=== PATIENT | female | born 1990 | race Caucasian/White ===

== ENCOUNTER 2023-07-20 19:14 | Emergency (ER) | payer OTHER, SELFPAY ==
[2023-07-20] VITALS (18 sets, daily range): BP systolic 100–120; BP diastolic 67–95; BMI 23.8
[2023-07-20] MEDS: NSS 1000 IV (19:38)
[2023-07-20 19:41] LABS: % Basophils 0.9 % (0-2); % Eosinophils 1.2 % (0-6); % Immature Granulocytes 0.3 % (0-0.5); % Monocytes 5.3 % (1.7-9.3); % Neutrophils 46.3 % (42.2-75.2); Absolute Basophils 0.1 10^3/uL (0-0.2); Absolute Eosinophils 0.2 10^3/uL (0-0.7); Absolute Lymphocytes 6.3 10^3/uL (1.2-3.4); Absolute Monocytes 0.7 10^3/uL (0.1-0.6); Absolute Neutrophils 6.3 10^3/uL (1.4-6.5); Hematocrit 37.7 % (37.0-47.0); Hemoglobin 12.9 g/dL (12.0-16.0); Mean Corp Hgb Conc. 34.2 g/dL (33.0-37.0); Mean Corpuscular Hgb 28.6 pg (27.0-31.0); Mean Corpuscular Volume 83.6 fL (81.0-99.0); Mean Platelet Volume 8.7 fL (7.4-10.4); Nucleated Red Blood Cells % 0 %; Platelet Count 317 10^3/uL (130-400); Red Blood Cell Count 4.51 10^6/uL (4.20-5.40); White Blood Cell Count 13.7 10^3/uL (4.8-10.8)
[2023-07-20 20:15] LABS: HCG, Serum Qualitative Screen Negative
[2023-07-20 20:18] LABS: ALT (SGPT) 14 U/L (0-35); AST (SGOT) 22 U/L (14-36); Albumin 4.3 g/dl (3.5-5.0); Alcohol 291 mg/dl; Alkaline Phosphatase 49 U/L (38-126); Blood Urea Nitrogen 8 mg/dl (7-17); Calcium 9.1 mg/dl (8.4-10.2); Carbon Dioxide 24 mmol/L (22-30); Chloride 106 mmol/L (98-107); Estimated Creatinine Clearance 120 ml/min; Glucose 119 mg/dl (70-99); Potassium 3.8 mmol/L (3.5-5.1); Sodium 137 mmol/L (135-145); Total Bilirubin 0.3 mg/dl (0.2-1.3); Total Protein 6.6 g/dl (6.3-8.2); eGFR > 60.00
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
[2023-07-20 20:29] LABS: Acetaminophen < 10 ug/ml (10-30); Salicylate < 1.0 mg/dl (2.0-20.0)
== END 2023-07-21 00:12 | disposition home or self-care (01) ==
LOC: EMR 19:14
PROVIDERS: EMERGENCY PHYSICIAN Emergency Medicine
DX: F10.129 Alcohol abuse with intoxication, unspecified (principal)
CPT/HCPCS: 99284; 80053; 80143; 80179; 82077; 84703; 85025

== ENCOUNTER → 2024-07-03 10:16 | Outpatient (REF) | payer OTHER, SELFPAY | LOC: WDC 10:16 | PROVIDERS: ATTENDING PHYSICIAN Nurse Practitioner Family; FAMILY PHYSICIAN Physician Assistant Medical | DX: N63.11 Unspecified lump in the right breast, upper outer quadrant (principal) | CPT/HCPCS: 76642; 77062; 77066 ==

== ENCOUNTER → 2024-10-12 12:24 | Outpatient (REF) | payer OTHER, SELFPAY | LOC: HWRAD 12:24 | PROVIDERS: ATTENDING PHYSICIAN Family Medicine | DX: S69.91XA Unspecified injury of right wrist, hand and finger(s), initial encounter (principal) | CPT/HCPCS: 73090; 73110; 73130 ==

== ENCOUNTER → 2025-02-01 09:20 | Outpatient (REF) | payer OTHER, SELFPAY | LOC: WDC 09:20 | PROVIDERS: ATTENDING PHYSICIAN Nurse Practitioner Family | DX: R92.8 Other abnormal and inconclusive findings on diagnostic imaging of breast (principal) | CPT/HCPCS: 76642 ==